=== PATIENT | male | born 1980 | race Caucasian/White ===

== ENCOUNTER 2017-05-20 10:21 | Emergency (ER) | payer OTHER ==
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
[2017-05-20] MEDS ORDERED: IPRATROPIUM/ALBUTEROL 3 ML NEB INH STA (11:02)
[2017-05-20] MEDS ORDERED: DEXAMETHASONE 10 MG/ML VIAL PO STA (11:02)
[2017-05-20] MEDS ORDERED: IPRATROPIUM/ALBUTEROL 3 ML NEB INH ONE (11:12)
[2017-05-20] MEDS ORDERED: DEXAMETHASONE 10 MG/ML VIAL ONE (11:24)
[2017-05-20] MEDS ORDERED: CHERRY SYRUP 10 ML UDC PO ONE (11:24)
[2017-05-20] MEDS ORDERED: ALBUTEROL NEB 2.5 MG/3 ML INH STA (11:38)
[2017-05-20] MEDS ORDERED: ALBUTEROL NEB 2.5 MG/3 ML INH ONE (11:42)
--- NOTE | 2017-05-20 11:49 | XRAY Preliminary Report ---
Exam: XR CHEST 2 VIEW PA/LAT IMPRESSION: Normal 2-view chest radiography. [facility] SITE ID: [id number]
--- NOTE | 2017-05-20 11:51 | XRAY Report ---
EXAM: CHEST RADIOGRAPHY EXAM DATE: 05/20/2017 11:34 AM. CLINICAL HISTORY: Wheezing/dyspnea worse x days; h/o asthma. COMPARISON: None. TECHNIQUE: 2 views. FINDINGS: Lungs/Pleura: No focal opacities evident. No pleural effusion. No pneumothorax. Normal volumes. Mediastinum: Heart and mediastinal contours are unremarkable. Other: None. IMPRESSION: Normal 2-view chest radiography. [facility] Referring Provider Line: [phone] SITE ID: [id number]
[2017-05-20 12:17] VITALS: BP 139/95
== END 2017-05-20 13:06 | disposition home or self-care (01) ==
LOC: ED 10:21
DX: J45.901 Unspecified asthma with (acute) exacerbation (principal)
CPT/HCPCS: 71020; 94640; 99283; 99284; A9270; J7613; J7620